=== PATIENT | male | born 1960 | race African-American/Black ===

== ENCOUNTER → 2019-07-18 | Outpatient (CLI) | payer OTHER ==
[~2019-07-18] MED LIST: ASPI81TA21 PO; ASPI81TA85 PO; CELE1CAP4 PO; CLAR10CA3 PO; FELO1TAB12 PO; FELO5TAB26 PO; FENO145T PO; FISH1000 PO; FOLI1TAB11 PO; FOLITAB5 PO; HYDR25TAB PO; HYZA100T2 PO; LORA-385 PO; LOSA100T50 PO; METF-414 PO; METF-791 PO; METO1TAB32 PO; METO25TA2 PO; NIAC500T42 PO; NIACCAP PO; TRIC145T22 PO; VARE05TA PO
== END ==
LOC: M PT 07:48 → EDSTATUS 08:15
PROVIDERS: ATTEND Orthopaedic Surgery
DX: M25.562 Pain in left knee (principal)

== ENCOUNTER 2019-07-24 05:49 | Inpatient (IN) | payer OTHER ==
[2019-07-24] VITALS (8 sets, daily range): BP systolic 165–169; BP diastolic 88–95; O2SAT 96–98
[~2019-07-24] VITALS: Ht 185.4 cm; Wt 112.0 kg
[2019-07-24] MEDS ORDERED: ceFAZolin SOD 2 GM in IV 1 EA IV ONE (06:00)
[2019-07-24] MEDS ORDERED: LR 1,000 ML IV SCH ×3 (06:00→13:15)
[2019-07-24] MEDS ORDERED: LIDOCAINE 1% MDV 20ML VIAL SQ PRN (06:00)
[2019-07-24] MEDS ORDERED: TRANEXAMIC ACID INJection 1,000 MG in NS 100 ML IV ONE (06:00)
[2019-07-24 06:32] LABS: HEMATOCRIT 40.5 % (42.0-52.0); MEAN CORPUSCULAR HEMOGLOBIN 28.5 pg (27.0-33.0); MEAN CORPUSCULAR HGB CONC 34.6 g/dl (32.0-36.5); MEAN CORPUSCULAR VOLUME 82.5 fl (80.0-96.0); PLATELET COUNT, AUTOMATED 203 10^3/uL (150-450); RED BLOOD COUNT 4.91 10^6/uL (4.30-6.10); WHITE BLOOD COUNT 4.7 10^3/uL (4.0-10.0)
[2019-07-24] MEDS ORDERED: fentaNYL 100 MCG/2 ML INJECTION (J3010) As Ordered ONE ×3 (06:47→09:29)
[2019-07-24] MEDS ORDERED: MIDAZOLAM INJ 2 MG/2 ML VIAL (J2250) As Ordered ONE ×3 (06:47→09:30)
[2019-07-24] MEDS ORDERED: CHLO25TA PO (07:01)
[2019-07-24] MEDS ORDERED: METF-839 PO ×2 (07:01)
[2019-07-24] MEDS ORDERED: propofoL 500 MG/50 ML VIAL As Ordered ONE (07:06)
[2019-07-24] MEDS ORDERED: ONDANSETRON 4MG/2ML VIAL (J2405) As Ordered ONE ×2 (07:06→10:32)
[2019-07-24] MEDS ORDERED: LIDOCAINE 2% INJ 100 MG/5 ML SDV (FOR ANES.) As Ordered ONE (07:06)
[2019-07-24] MEDS ORDERED: ceFAZolin 1GM INJ (J0690 PER 500MG) As Ordered ONE (07:09)
[2019-07-24] MEDS ORDERED: TRANEXAMIC ACID 100 MG/ML 10ML VIAL As Ordered ONE (07:11)
[2019-07-24] MEDS ORDERED: BUPIVACAINE LIPOSOME/PF 1.3% 20ML VIAL (13.3MG/ML)(EXPAREL)(C9290 PER1MG) As Ordered ONE (07:11)
[2019-07-24] MEDS ORDERED: fentaNYL 100 MCG/2 ML INJECTION (J3010) IV ONE (07:45)
[2019-07-24] MEDS ORDERED: MIDAZOLAM INJ 2 MG/2 ML VIAL (J2250) IV ONE (07:45)
[2019-07-24] MEDS ORDERED: ACETAMINOPHEN 1000MG 100ML IV BTL (OFIRMEV) (J0131 PER 10MG) As Ordered ONE (08:07)
[2019-07-24] MEDS ORDERED: propofoL 200 MG/20 ML VIAL As Ordered ONE ×2 (08:43→09:17)
[2019-07-24] MEDS ORDERED: KETAMINE HCL 200 MG/20 ML VIAL As Ordered ONE (09:31)
[2019-07-24] MEDS ORDERED: HYDROmorphone HCL 2 MG/ML 1ML VIAL (J1170) As Ordered ONE (09:43)
[2019-07-24] MEDS ORDERED: dexameTHASONE 4 MG/ML 1ML VIAL (J1100) As Ordered ONE (09:48)
[2019-07-24] MEDS ORDERED: dexameTHASONE 10 MG/1 ML VIAL PRES.FREE (J1100) ONE (10:20)
[2019-07-24] MEDS ORDERED: BUPIVACAINE/EPIN 0.5% 30 ML VIAL ONE (10:20)
[2019-07-24] MEDS: fentaNYL 100 MCG/2 ML INJECTION (J3010) IV PRN ×4 (11:25→11:50)
[2019-07-24] MEDS ORDERED: ONDANSETRON 4MG/2ML VIAL (J2405) IV PRN ×3 (11:30→13:15)
[2019-07-24] MEDS ORDERED: oxyCODONE 5MG TAB PO PRN ×2 (11:30→13:15)
[2019-07-24] MEDS: KETOROLAC 30 MG/ML VIAL (J1885) IV SCH ×2 (12:00→18:30)
[2019-07-24] MEDS: HYDROMORPHONE HCL 0.5 MG/ 0.5 ML SYRINGE (J1170 PER 1) IV PRN ×2 (12:03→12:10)
--- NOTE | 2019-07-24 12:21 | REP ---
Left knee two views postoperative study: There is a total knee arthroplasty. The components are tightly applied and in satisfactory positions alignment are Electronically Signed by Jason Guerra MD 07/24/2019 12:12 P
[2019-07-24] MEDS ORDERED: hydrALAZINE INJ 20 MG/ML VIAL As Ordered ONE (12:31)
[2019-07-24] MEDS ORDERED: traMADol 50 MG TAB PO PRN (12:31)
[2019-07-24] MEDS ORDERED: PERCOCET 5MG/325MG TAB PO PRN (12:31)
[2019-07-24] MEDS ORDERED: ACETAMINOPHEN TAB 650MG DOSE (2X325MG) PO PRN (12:31)
[2019-07-24] MEDS: hydrALAZINE INJ 20 MG/ML VIAL IV PRN ×4 (12:32→12:48)
[2019-07-24] MEDS ORDERED: fentaNYL 100 MCG/2 ML INJECTION (J3010) IV PRN (13:15)
[2019-07-24] MEDS ORDERED: HYDROMORPHONE HCL 0.5 MG/ 0.5 ML SYRINGE (J1170 PER 1) IV PRN (13:15)
[2019-07-24] MEDS: ceFAZolin SOD 2 GM in IV 1 EA IV SCH (15:44)
[2019-07-24] MEDS: PERCOCET 5MG/325MG TAB PO PRN (15:45)
--- NOTE | 2019-07-24 23:44 | RO ---
DATE OF PROCEDURE: 07/24/2019 PREOPERATIVE DIAGNOSIS: Left knee osteoarthritis. POSTOPERATIVE DIAGNOSIS: Left knee osteoarthritis. PROCEDURE PERFORMED: Left total knee arthroplasty. SURGEON: Dr. Bj Griffin SUPERVISOR TAPING: TAMIKO Buck ANESTHESIA PROVIDER: Dr. Coral Garcia ANESTHESIA GIVEN: Single shot spinal and adductor canal block, later converted to general laryngeal mask airway (LMA) anesthesia. ESTIMATED BLOOD LOSS: 200 mL TOTAL TOURNIQUET TIME: 133 minutes, 250 mmHg left thigh. IMPLANTS USED: DePuy Attune cruciate-retaining femur size 7, fixed bearing tibia size 6 with a 5 mm tibial polyethylene and 35 mm patellar polyethylene implant. ANTIBIOTICS: 2 grams of Ancef given within 1 hour of incision. MATERIAL SENT TO LAB: Left knee bone permanent specimen. COMPLICATIONS: None. INDICATIONS FOR PROCEDURE: Abdi Chow is a 59-year-old male who has had longstanding left knee pain with a diagnosis of osteoarthritis. He had failed appropriate nonoperative management, including activity modification, steroid injections, weight control, medications and exercise therapy. We discussed the risks, benefits, indications, alternatives of operative versus nonoperative management for left knee osteoarthritis, and I recommended total knee arthroplasty. The patient was appropriately risk stratified by his internal medicine doctor and cleared for surgery. Informed consent was obtained for a left total knee arthroplasty. INTRAOPERATIVE FINDINGS: There was tricompartmental osteoarthritis of the left knee with balanced well-fixed components after completion. DESCRIPTION OF PROCEDURE: The patient was positively identified in the preop holding area, the surgical site was marked. He was then given single shot adductor canal nerve block by the anesthesia service for postop pain control and brought to the operating room where he was given single shot spinal anesthetic intraoperatively. He was positioned supine on a regular table with all bony prominences appropriately padded. Sequential compression devices (SCDs) placed on the nonoperative extremity for deep vein thrombosis (DVT) prophylaxis. He was then prepped and draped in the usual sterile fashion. A final time-out was performed. I made a 15 cm incision just medial to the midline of the patella, going from 6 cm proximal to the superior pole to the level of the tibial tubercle. I dissected through skin and subcutaneous tissue. I performed a standard medial parapatellar arthrotomy, followed by a medial release of the soft tissues of the proximal tibia, followed by a synovectomy of the synovium at the distal femur. This was then followed by excision of the patellar fat pad. I then proceeded to make the patellar cut. Initially the patella measured to 27 mm in thickness; after resection, measured to 15 mm thickness. A protector plate was then applied to the patella. The knee was then brought into flexion, the patella everted. This was then followed by insertion of the distal femur step drill into the femoral canal, followed by placement of the intramedullary femoral guide. I then performed the standard distal femur cut, 5 degrees of valgus and 9 mm of distal femur was cut. This was then followed by sizing the femur to a size 8. The sizing block was placed, I ensured that there was external rotation and the posterior condylar cut was perpendicular to Whitside's line. I then performed the anterior, posterior and chamfer cuts. This was then followed by excision of the medial and lateral menisci, and then I used the extra-articular tibial guide and lined the guide up perpendicular to the shaft of the tibia. I made a cut of 2 mm in the medial tibial plateau and 9 mm on the lateral. The tibial cut was made, osteophytes were excised from the femur and tibia. This was then followed by evaluation of the gaps. There was then a symmetric tightness in flexion and extension; therefore, I made an additional 2 mm cut off the proximal tibia. This restored the majority of the balance. Then the knee was still a little slightly tight in flexion, but otherwise symmetric. After performing appropriate soft tissue release, it was still slightly tight in flexion; therefore, I elected to down size the femur. The femoral 4-in-1 cutting block was replaced and the femur was lowered in size to a 7. After this, the flexion and extension gaps were well balanced. I cleared osteophytes off the posterior femur and injected local anesthetic into the posterior knee capsule. This was then followed by placement of the femoral and tibial trials. The tibia tray was floated in size to a size 6. The tibial tray was aligned with the medial and middle thirds of the tibial tubercle. After the tibial trial was inserted, the femoral trial was inserted and the patella lug holes were drilled and a patella trial was placed. The knee was then brought through a range of motion, and there was excellent patellar tracking using a no-touch technique. At this point, the sizes were finalized. I injected the remainder of the Exparel into the surrounding capsular soft tissues. At this point, the case had approached approximately 2 hours, and the spinal anesthetic was wearing off, so the patient was converted to LMA anesthetic. After the knee was thoroughly irrigated of all blood and bony debris, the final implants were then cemented in standard fashion. After cementing the implants, the knee was then trialed, brought through a range of motion. He had full range of motion from extension to flexion. There was excellent balance of both flexion and extension gaps and excellent patellar tracking using no-touch technique. After this was completed, the parapatellar arthrotomy was closed using interrupted #0 Vicryl suture in a [id number] fashion followed by a running barbed suture. The tourniquet was let down. Hemostasis was obtained using monopolar electrocautery. The wound was then thoroughly irrigated again with normal saline. Layered closure was performed. The subcutaneous layer was closed with interrupted #2-0 Vicryl suture, the skin was closed with a running #3-0 Monocryl and a Prineo dressing. Sterile dressings were applied. This ended the procedure. I was present and scrubbed in for all critical portions of the case. POSTOPERATIVE PLAN: The patient will be admitted to hospital floor today. He will be weightbearing as tolerated to the left lower extremity. He will undergo total knee rehabilitation protocol and be discharged home when criteria met. [facility]
[2019-07-25] MEDS: KETOROLAC 30 MG/ML VIAL (J1885) IV SCH ×3 (00:37→11:28)
[2019-07-25] MEDS: ceFAZolin SOD 2 GM in IV 1 EA IV SCH (00:37)
[2019-07-25 02:00] VITALS: BP 168/94
[2019-07-25] MEDS: PERCOCET 5MG/325MG TAB PO PRN (05:15)
[2019-07-25 06:00] VITALS: BP 134/79
--- NOTE | 2019-07-25 08:43 | IPNPDOC ---
Date Seen The patient was seen on 07/25/19. Progress Note SUBJECTIVE: Patient is a 59 y/o male POD1 s/p L TKA. Patient seen and examined overnight. No acute overnight events. Has gotten up to the restroom on his own and voided spontaneously. OBJECTIVE PHYSICAL EXAMINATION: VITAL SIGNS: Please see below. GENERAL: well nourished male, no acute distress CARDIOVASCULAR: 2+ DP/PT pulses, BCR all digits LLE. RESPIRATORY: non labored breathing. EXTREMITIES: LLE dressing in place, c/d/i. able to perform SLR. Full active ankle ROM. Knee ROM 0-70. NEUROLOGICAL: Sensation/motor intact in all LLE distributions LABORATORY DATA: Please see below. IMAGING: Post op films demonstrate well fixed TKA components DVT prophylaxis ordered?: Xarelto 10mg, SCDs ASSESSMENT : This is a 59 y/o male POD1 s/p L TKA doing well PLAN: 1. WBAT LLE 2. PT for ambulation 3. Xarelto for DVT prophylaxis 4. Dressing down tomorrow at home 5. no labs DISPOSITION: d/c home today after clears PT. VS, I&O, 24H, Fishbone Vital Signs/I&O Vital Signs Date Time Temp Pulse Resp B/P (MAP) Pulse Ox O2 Delivery O2 Flow Rate FiO2 07/25/19 06:00 98.3 18 100 134/79 (97) 98 Room Air 07/24/19 07:25 3 I&O- Last 24 Hours up to 6 AM 07/25/19 05:59 Intake Total 3710 ml Output Total 2130 ml Balance 1580 ml KAUR TAYLOR MD Jul 25, 2019 08:43
[2019-07-25 09:00] VITALS: BP 134/79
[2019-07-25] MEDS ORDERED: LOSARTAN 50 MG TAB PO SCH (09:00)
[2019-07-25] MEDS ORDERED: hydroCHLOROthiazide 25 MG TAB PO SCH (09:00)
[2019-07-25] MEDS ORDERED: NIFEdipine 30 MG XL TAB PO SCH (09:00)
[2019-07-25] MEDS ORDERED: METOPROLOL SUCC *XL* 25MG TAB (TopROL *XL*) PO SCH (09:00)
[2019-07-25 10:00] VITALS: BP 161/95
[2019-07-25] MEDS ORDERED: RIVAROXABAN 10 MG TAB (XARELTO) PO ONE (18:00)
[2019-07-25] MEDS ORDERED: CelecoXIB (CeleBREX) 100 MG CAP PO SCH (21:00)
[2019-07-26] MEDS ORDERED: RIVAROXABAN 10 MG TAB (XARELTO) PO SCH (18:00)
--- NOTE | 2019-07-27 09:27 | DSES ---
DATE OF ADMISSION: 07/24/2019 DATE OF DISCHARGE: 07/25/2019 Mr. Chow is a 59-year-old male with continuing symptomatic left knee osteoarthritis. He consented for a left total knee arthroplasty per Dr. Bj Griffin . X-rays were consistent with osteoarthritis. Medical clearance per Ulises Hirsch. OPERATION PERFORMED: Left total knee arthroplasty. HOSPITAL COURSE: The patient underwent left total knee arthroplasty under spinal and adductor canal block, which was later converted to laryngeal mask airway anesthesia. The patient was then returned to recovery comfortable. Our hospital team felt Mr. Chow was ready for discharge the next day with the following instructions: Diet is regular, Percocet as needed pain, weightbearing as tolerated with walker, thromboembolic deterrent (SRINIVAS) stockings times 30 days, anticoagulation per protocol, Optifoam dressing change in 4 days' time, followup with [facility] 2 weeks' time, wound check, potential staple removal. The patient is encouraged to contact our office sooner with increased pain, numbness, tingling, bleeding, drainage, fever greater than 101, or any further concerns. [facility]
== END 2019-07-25 13:20 | disposition home or self-care (01) | DRG 470 ==
LOC: M OR 05:49 → M MS5PR 15:25
PROVIDERS: ADMIT Orthopaedic Surgery; ATTEND Orthopaedic Surgery
PROC: 0SRD0J9 Replacement of Left Knee Joint with Synthetic Substitute, Cemented, Open Approach (ICD-10-PCS; principal; 2019-07-24 07:30)
DX: M17.12 Unilateral primary osteoarthritis, left knee (principal); E11.9 Type 2 diabetes mellitus without complications; I10 Essential (primary) hypertension; E78.5 Hyperlipidemia, unspecified; G47.33 Obstructive sleep apnea (adult) (pediatric); Z79.84 Long term (current) use of oral hypoglycemic drugs; Z79.899 Other long term (current) drug therapy; Z79.82 Long term (current) use of aspirin; Z87.891 Personal history of nicotine dependence

== ENCOUNTER 2019-10-30 17:56 | Emergency (ER) | payer OTHER ==
[~2019-10-30] VITALS: Ht 185.4 cm; Wt 99.1 kg
[~2019-10-30 17:56] MED LIST changes: -ASPI81TA85 PO; +ASPI81TA86 PO; +CHLO25TA PO; +HYDR-3490 PO; -HYDR25TAB PO; -METF-791 PO; +METF-838 PO; +METF-839 PO
[2019-10-30] MEDS ORDERED: ASPI81TA26 (18:10)
[2019-10-30] MEDS ORDERED: FELO5TAB26 PO (18:10)
[2019-10-30] MEDS ORDERED: NS 1,000 ML IV ONE (18:30)
[2019-10-30] MEDS ORDERED: HumuLIN R (REGULAR) INSULIN (NovoLIN R) **100U/ML** PER UNIT IV ONE (18:30)
[2019-10-30 19:12] LABS: BASO % 0.5 % (0.0-1.0); EOS % 0.2 % (0.0-3.0); HEMATOCRIT 43.5 % (42.0-52.0); LYMPH # 2.4 10^3/uL (1.5-5.0); LYMPH % 37.5 % (24.0-44.0); MEAN CORPUSCULAR VOLUME 81.9 fl (80.0-96.0); MONO # 1.1 10^3/uL (0.0-0.8); NEUTROPHILS # 2.8 10^3/uL (1.5-8.5); NEUTROPHILS % 44.2 % (36.0-66.0); PLATELET COUNT, AUTOMATED 294 10^3/uL (150-450); RED BLOOD COUNT 5.31 10^6/uL (4.30-6.10)
[2019-10-30 19:33] LABS: HEMOGLOBIN A1c 12.7 %
[2019-10-30 19:35] LABS: HEMOGLOBIN 14.7 g/dl (13.5-17.5)
[2019-10-30 19:36] LABS: MEAN CORPUSCULAR HEMOGLOBIN 27.6 pg (27.0-33.0); MEAN CORPUSCULAR HGB CONC 33.7 g/dl (32.0-36.5)
[2019-10-30 19:38] LABS: WHITE BLOOD COUNT 6.4 10^3/uL (4.0-10.0)
[2019-10-30 19:45] LABS: ACETONE/KETONE 13.33 MG/DL (<2.81); ALBUMIN 3.7 GM/DL (3.2-5.2); ALT/SGPT 48 U/L (12-78); BILIRUBIN,DIRECT < 0.1 MG/DL (0.0-0.2); BILIRUBIN,TOTAL 0.4 MG/DL (0.2-1.0); LIPASE 169 U/L (73-393); TOTAL PROTEIN 7.6 GM/DL (6.4-8.2)
[2019-10-30 19:57] LABS: VENOUS BASE EXCESS 0.9 (-2.0-2.0); VENOUS HCO3 25.2 MEQ/L (23.0-27.0); VENOUS PARTIAL PRESSURE CO2 39.2 mmHg (38.0-50.0); VENOUS PARTIAL PRESSURE O2 86.1 mmHg (30.0-50.0); VENOUS PH 7.426 UNITS (7.330-7.430); VENOUS STANDARD HCO3 25.2 MEQ/L; VENOUS TOTAL CO2 26.4 MEQ/L (24.0-28.0)
[2019-10-30] MEDS ORDERED: GLYB5TAB6 PO (20:19)
[2019-10-30 20:44] VITALS: BP 132/80
[2019-10-31 15:19] LABS: OSMOLALITY SERUM 314 MOSM/KG (275-295)
== END 2019-10-30 20:45 | disposition home or self-care (01) ==
LOC: M ED 17:56
DX: E11.65 Type 2 diabetes mellitus with hyperglycemia (principal); I10 Essential (primary) hypertension; Z79.899 Other long term (current) drug therapy; Z79.84 Long term (current) use of oral hypoglycemic drugs; Z79.82 Long term (current) use of aspirin; F17.210 Nicotine dependence, cigarettes, uncomplicated

== ENCOUNTER → 2020-06-17 | Outpatient (CLI) | payer OTHER ==
[~2020-06-17] MED LIST changes: +ASPI81TA26; +GLYB5TAB6 PO
== END ==
LOC: M LABSMTC 12:30
PROVIDERS: ATTEND Family Medicine
DX: Z20.822 Contact with and (suspected) exposure to COVID-19 (principal)

== ENCOUNTER → 2022-02-18 | Outpatient (CLI) | payer OTHER ==
[~2022-02-18] MED LIST changes: +LOSA100T45 PO; -LOSA100T50 PO
== END ==
LOC: M RAD 07:19
PROVIDERS: ATTEND Nurse Practitioner Primary Care
DX: Z87.891 Personal history of nicotine dependence (principal)

== ENCOUNTER → 2022-08-17 | Outpatient (REF) | LOC: M PLAIMG 10:09 | PROVIDERS: ATTEND Internal Medicine | DX: M51.37 Other intervertebral disc degeneration, lumbosacral region (principal); M16.12 Unilateral primary osteoarthritis, left hip ==

== ENCOUNTER → 2023-09-09 | Outpatient (CLI) | payer OTHER ==
[~2023-09-09] MED LIST changes: -LOSA100T45 PO; +LOSA100T46 PO
== END ==
LOC: M RAD 07:02
PROVIDERS: ATTEND Family Medicine
DX: F17.210 Nicotine dependence, cigarettes, uncomplicated (principal); Z87.81 Personal history of (healed) traumatic fracture

== ENCOUNTER → 2024-02-25 | Outpatient (CLI) | payer OTHER ==
[~2024-02-25] MED LIST changes: +PROHANCE 279.3MG/ML 15ML VIAL As Ordered ONE; +PROHANCE 279.3MG/ML 5ML VIAL As Ordered ONE
== END ==
LOC: M RAD 08:30
PROVIDERS: ATTEND Student in an Organized Health Care Education/Training Program
DX: M51.26 Other intervertebral disc displacement, lumbar region (principal); M99.9 Biomechanical lesion, unspecified
CPT/HCPCS: 72158; A9576

== ENCOUNTER → 2024-10-04 | Outpatient (CLI) | payer OTHER ==
[~2024-10-04] MED LIST changes: -PROHANCE 279.3MG/ML 15ML VIAL As Ordered ONE; -PROHANCE 279.3MG/ML 5ML VIAL As Ordered ONE
== END ==
LOC: M RAD 08:36
PROVIDERS: ATTEND Nurse Practitioner Primary Care
DX: Z87.891 Personal history of nicotine dependence (principal)

== ENCOUNTER → 2025-02-05 | Outpatient (CLI) | payer OTHER | LOC: M EKG 10:03 | PROVIDERS: ATTEND Surgery | DX: Z01.818 Encounter for other preprocedural examination (principal) ==